=== PATIENT | female | born 1965 | race Caucasian/White ===

== ENCOUNTER → 2016-07-22 | Outpatient (REF) | payer OTHER ==
[2016-07-22 19:57] LABS: BASO % 0.9 % (0.0-1.0); EOS # 0.2 K/mm3 (0.0-0.50); EOS % 3.7 % (0.0-3.0); LYMPH # 1.4 K/mm3 (1.5-4.5); LYMPH % 27.9 % (24.0-44.0); MEAN CORPUSCULAR HGB CONC 33.2 g/dl (32.0-36.5); MEAN CORPUSCULAR VOLUME 93.3 fl (80.0-96.0); MONO # 0.3 K/mm3 (0.0-0.8); MONO % 6.2 % (0.0-5.0); NEUTROPHILS # 2.8 K/mm3 (1.8-7.7); NEUTROPHILS % 59.5 % (36.0-66.0); RED CELL DISTRIBUTION WIDTH 11.9 % (11.5-14.5); WHITE BLOOD COUNT 4.7 K/mm3 (4.0-10.0)
[2016-07-22 20:04] LABS: ALBUMIN 4.3 GM/DL (3.2-5.2); ALBUMIN/GLOBULIN RATIO 1.23 (1.00-1.93); ALKALINE PHOSPHATASE 71 U/L (45-117); ALT/SGPT 20 U/L (12-78); AMYLASE 57 U/L (25-115); ANION GAP 5 MEQ/L (8-16); AST/SGOT 19 U/L (15-37); BILIRUBIN,TOTAL 0.4 MG/DL (0.2-1.0); BLOOD UREA NITROGEN 18 MG/DL (7-18); CALCIUM LEVEL 9.4 MG/DL (8.5-10.1); CARBON DIOXIDE LEVEL 33 MEQ/L (21-32); CHLORIDE LEVEL 102 MEQ/L (98-107); CREATININE FOR GFR 0.88 MG/DL (0.55-1.02); GLOMERULAR FILTRATION RATE > 60.0 (>51); GLUCOSE, FASTING 89 MG/DL (70-105); POTASSIUM SERUM 3.8 MEQ/L (3.5-5.1); SODIUM LEVEL 140 MEQ/L (136-145); TOTAL PROTEIN 7.8 GM/DL (6.4-8.2)
== END ==
LOC: M LABDRWAD 09:15
PROVIDERS: ATTEND Nurse Practitioner Family
DX: R10.13 Epigastric pain (principal)

== ENCOUNTER → 2016-12-30 | Outpatient (CLI) | payer OTHER ==
--- NOTE | 2016-12-30 12:09 | REPMRS ---
Patient History The patient states she had a clinical breast exam in November 2016. Patient had first child at age 36. Digital Mammo Screening Bilat: December 30, 2016 - Exam #: [id number] Bilateral CC and MLO view(s) were taken. Technologist: Brit Rebolledo, Technologist Prior study comparison: December 30, 2015, bilateral digital mammo screening bilat performed at [facility]. December 19, 2014, bilateral digital mammo screening bilat performed at [facility]. FINDINGS: There are scattered fibroglandular densities. There has been no change in the appearance of the mammogram from the prior studies. There is a mild amount of residual fibroglandular tissue which is fairly symmetric. There is no interval development of dominant mass, architectural distortion, or clustered microcalcification suggestive of malignancy. ASSESSMENT: BI-RADS/ACR category 1 mammogram. Negative. Recommendation Routine screening mammogram in 1 year (for women over age 40). This mammogram was interpreted with the aid of an FDA-approved computer-aided dectection system. Electronically Signed By: Chino Bhatt MD 12/30/16 [id number]
== END ==
LOC: M RAD 09:56
PROVIDERS: ATTEND Nurse Practitioner Women's Health
DX: Z12.31 Encounter for screening mammogram for malignant neoplasm of breast (principal)

== ENCOUNTER → 2017-07-14 | Outpatient (CLI) | payer OTHER ==
[2017-07-14 12:37] LABS: BASO % 1.3 % (0.0-1.0); EOS # 0.1 10^3/uL (0.0-0.50); EOS % 1.9 % (0.0-3.0); HEMATOCRIT 37.7 % (36.0-47.0); HEMOGLOBIN 12.5 g/dl (12.0-16.0); IMMATURE GRANULOCYTE % 0.3 % (0-3.0); LYMPH # 1.1 10^3/uL (1.5-4.5); LYMPH % 35.9 % (24.0-44.0); MEAN CORPUSCULAR HEMOGLOBIN 30.7 pg (27.0-33.0); MEAN CORPUSCULAR HGB CONC 33.2 g/dl (32.0-36.5); MEAN CORPUSCULAR VOLUME 92.6 fl (80.0-96.0); MONO # 0.3 10^3/uL (0.0-0.8); MONO % 9.1 % (0.0-5.0); NEUTROPHILS # 1.6 10^3/uL (1.8-7.7); NEUTROPHILS % 51.5 % (36.0-66.0); PLATELET COUNT, AUTOMATED 243 10^3/uL (150-450); RED BLOOD COUNT 4.07 10^6/uL (4.00-5.40); RED CELL DISTRIBUTION WIDTH 12.1 % (11.5-14.5); WHITE BLOOD COUNT 3.1 10^3/uL (4.0-10.0)
[2017-07-14 12:51] LABS: TOTAL 25(OH) VITAMIN D 38.4 NG/ML (30.0-100.0)
[2017-07-14 14:59] LABS: ALBUMIN 4.2 GM/DL (3.2-5.2); ALKALINE PHOSPHATASE 78 U/L (45-117); ALT/SGPT 21 U/L (12-78); ANION GAP 5 MEQ/L (8-16); AST/SGOT 19 U/L (7-37); BILIRUBIN,TOTAL 0.6 MG/DL (0.2-1.0); BLOOD UREA NITROGEN 14 MG/DL (7-18); CALCIUM LEVEL 8.5 MG/DL (8.5-10.1); CARBON DIOXIDE LEVEL 30 MEQ/L (21-32); CHLORIDE LEVEL 107 MEQ/L (98-107); CHOLESTEROL LEVEL 260 MG/DL (<200); CHOLESTEROL RISK RATIO 1.897 (<5); CREATININE FOR GFR 0.89 MG/DL (0.55-1.30); GLOMERULAR FILTRATION RATE > 60.0 (>51); GLUCOSE, FASTING 85 MG/DL (70-100); HDL CHOLESTEROL 137 MG/DL (>40); NON-HDL-C 123 MG/DL; POTASSIUM SERUM 4.4 MEQ/L (3.5-5.1); SODIUM LEVEL 142 MEQ/L (136-145); TOTAL PROTEIN 7.7 GM/DL (6.4-8.2); TRIGLYCERIDES LEVEL 40 MG/DL (<150)
== END ==
LOC: M ADAMS 10:35
DX: E78.5 Hyperlipidemia, unspecified (principal); M19.90 Unspecified osteoarthritis, unspecified site; R42 Dizziness and giddiness; E55.9 Vitamin D deficiency, unspecified

== ENCOUNTER → 2018-01-03 | Outpatient (CLI) | payer OTHER | LOC: M RAD 10:50 | DX: Z12.31 Encounter for screening mammogram for malignant neoplasm of breast (principal) | CPT/HCPCS: 77067 ==

== ENCOUNTER → 2018-07-14 | Outpatient (CLI) | payer OTHER ==
[2018-07-14 12:50] LABS: HEMATOCRIT 37.9 % (36.0-47.0); HEMOGLOBIN 12.4 g/dl (12.0-15.5); MEAN CORPUSCULAR HEMOGLOBIN 30.3 pg (27.0-33.0); MEAN CORPUSCULAR HGB CONC 32.7 g/dl (32.0-36.5); MEAN CORPUSCULAR VOLUME 92.7 fl (80.0-96.0); PLATELET COUNT, AUTOMATED 237 10^3/uL (150-450); RED BLOOD COUNT 4.09 10^6/uL (4.00-5.40); WHITE BLOOD COUNT 3.5 10^3/uL (4.0-10.0)
[2018-07-14 13:27] LABS: ALBUMIN 4.1 GM/DL (3.2-5.2); ALT/SGPT 19 U/L (12-78); BILIRUBIN,TOTAL 0.5 MG/DL (0.2-1.0); BLOOD UREA NITROGEN 15 MG/DL (7-18); CALCIUM LEVEL 8.9 MG/DL (8.5-10.1); CARBON DIOXIDE LEVEL 29 MEQ/L (21-32); CHLORIDE LEVEL 106 MEQ/L (98-107); CHOLESTEROL LEVEL 262 MG/DL (<200); CHOLESTEROL RISK RATIO 1.969 (<5); CREATININE FOR GFR 0.93 MG/DL (0.55-1.30); GLOMERULAR FILTRATION RATE > 60.0 (>51); GLUCOSE, FASTING 86 MG/DL (70-100); HDL CHOLESTEROL 133 MG/DL (>40); LDL CHOLESTEROL 122 MG/DL (<100); MAGNESIUM LEVEL 2.5 MG/DL (1.8-2.4); NON-HDL-C 129 MG/DL; POTASSIUM SERUM 4.9 MEQ/L (3.5-5.1); SODIUM LEVEL 141 MEQ/L (136-145); TOTAL 25(OH) VITAMIN D 40.5 NG/ML (30.0-100.0); TOTAL PROTEIN 7.4 GM/DL (6.4-8.2); TRIGLYCERIDES LEVEL 35 MG/DL (<150)
== END ==
LOC: M LABDRWAD 10:51
PROVIDERS: ATTEND Family Medicine
DX: E78.5 Hyperlipidemia, unspecified (principal); M19.90 Unspecified osteoarthritis, unspecified site; E83.42 Hypomagnesemia

== ENCOUNTER → 2018-07-20 | Outpatient (REF) | payer OTHER | LOC: M LAB REF 19:23 | PROVIDERS: ATTEND Physician Assistant Medical | DX: J02.9 Acute pharyngitis, unspecified (principal) ==

== ENCOUNTER → 2019-01-04 | Outpatient (CLI) | payer OTHER ==
--- NOTE | 2019-01-04 11:23 | REPMRS ---
Patient History The patient states she had a clinical breast exam in November 2018. Patient had first child at age 36. Took hormonal contraceptives for 5 years. Digital Mammo Screening Bilat: January 04, 2019 - Exam #: [id number] Bilateral CC and MLO view(s) were taken. Technologist: Ramila Mcdonald Technologist Prior study comparison: January 03, 2018, bilateral digital mammo screening bilat performed at [facility]. December 30, 2016, bilateral digital mammo screening bilat performed at [facility]. December 30, 2015, bilateral digital mammo screening bilat performed at [facility]. FINDINGS: There are scattered fibroglandular densities. There has been no change in the appearance of the mammogram from the prior studies. There is a mild amount of scattered fibroglandular density which is fairly symmetric. There is no interval development of dominant mass, architectural distortion, or grouped microcalcification suggestive of malignancy. 3-D tomosynthesis shows no additional findings. Assessment: BI-RADS/ACR category 1 mammogram. Negative Mammogram. Recommendation Routine screening mammogram of both breasts in 1 year (for women over age 40). This patient's Lifetime Breast Cancer Risk is estimated at 12.0 %. This mammogram was interpreted with the aid of an FDA-approved computer-aided dectection system. Electronically Signed By: Alex Lewis MD 01/04/19 1123
== END ==
LOC: M RAD 08:10
PROVIDERS: ATTEND Nurse Practitioner Women's Health
DX: Z12.31 Encounter for screening mammogram for malignant neoplasm of breast (principal)

== ENCOUNTER → 2019-11-27 | Outpatient (REF) | payer OTHER ==
[2019-11-27 14:43] LABS: CHOLESTEROL RISK RATIO 2.151 (<5); TOTAL 25(OH) VITAMIN D 56.8 NG/ML (30.0-100.0)
== END ==
LOC: M LABDRWAD 12:21
PROVIDERS: ATTEND Family Medicine
DX: E78.5 Hyperlipidemia, unspecified (principal); E55.9 Vitamin D deficiency, unspecified

== ENCOUNTER → 2020-01-08 | Outpatient (CLI) | payer OTHER ==
--- NOTE | 2020-01-23 16:29 | REPMRS ---
Patient History The patient states she had a clinical breast exam in 11/2019. Patient is postmenopausal and had first child at age 36. Family history of pancreatic cancer at age 58 in sister. Took hormonal contraceptives for 5 years. Digital Woman Screen Mammo: January 08, 2020 - Exam #: [id number] Bilateral CC and MLO view(s) were taken. Technologist: Kimberly Ibanez, Technologist Prior study comparison: January 04, 2019, bilateral digital mammo screening bilat, performed at [facility]. January 03, 2018, bilateral digital mammo screening bilat, performed at [facility]. December 30, 2016, bilateral digital mammo screening bilat, performed at [facility]. FINDINGS: There are scattered fibroglandular densities. The Volpara volumetric breast density category is:B. There has been no change in the appearance of the mammogram from the prior studies. There is a mild amount of scattered fibroglandular density which is fairly symmetric. There is no interval development of dominant mass, architectural distortion, or grouped microcalcification suggestive of malignancy. 3-D tomosynthesis shows no additional findings. Assessment: BI-RADS/ACR category 1 mammogram. Negative Mammogram. Recommendation Routine screening mammogram of both breasts in 1 year (for women over age 40). This patient's Lifetime Breast Cancer Risk is estimated at 12.9 %. This mammogram was interpreted with the aid of an FDA-approved computer-aided dectection system. Electronically Signed By: Alex Lewis MD 01/23/20 [id number]
== END ==
LOC: M WHC 17:04
PROVIDERS: ATTEND Obstetrics & Gynecology
DX: Z12.31 Encounter for screening mammogram for malignant neoplasm of breast (principal); Z78.0 Asymptomatic menopausal state; Z80.0 Family history of malignant neoplasm of digestive organs

== ENCOUNTER → 2020-04-29 | Outpatient (CLI) | payer SELFPAY | LOC: M LABSMTC 19:09 | PROVIDERS: ATTEND Pediatrics | DX: Z11.59 Encounter for screening for other viral diseases (principal) ==

== ENCOUNTER 2020-06-26 17:14 | Emergency (ER) | payer OTHER ==
[~2020-06-26] VITALS: Ht 157.5 cm; Wt 54.5 kg
--- OUTSIDE RECORDS SUMMARY | 2020-06-26 17:52 | CCD ---
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 Operator Name Role Phone Kianna SUÁREZ MD Unavailable Unavailable Kianna SUÁREZ MD Unavailable Unavailable Kianna SUÁREZ MD Unavailable Unavailable Kianna SUÁREZ MD Unavailable Unavailable Kianna SUÁREZ MD Unavailable Unavailable SUÁREZKianna MD Unavailable Unavailable SUÁREZKianna MD Unavailable Unavailable SUÁREZKianna MD Unavailable Unavailable SUÁREZKianna MD Unavailable Unavailable USÁREZKianna MD Unavailable Unavailable SUÁREZKianna MD Unavailable Unavailable SUÁREZKianna MD Unavailable Unavailable SUÁREZ L DENA SCOTT Unavailable Unavailable SUÁREZKianna MD Unavailable Unavailable SUÁREZKianna MD Unavailable Unavailable SUÁREZKianna MD Unavailable Unavailable Kianna SUÁREZ MD Unavailable Unavailable SUÁREZKianna MD Unavailable Unavailable SUÁREZKianna MD Unavailable Unavailable Kianna SUÁREZ MD Unavailable Unavailable SUÁREZ, L DENA SCOTT Unavailable Unavailable SUÁREZ, L DENA SCOTT Unavailable Unavailable SUÁREZ, L DENA SCOTT Unavailable Unavailable SUÁREZ, Kianna FERNANDES MD Unavailable Unavailable SUÁREZ, L DENA SCOTT Unavailable Unavailable SUÁREZKianna MD Unavailable Unavailable SUÁREZ, L DENA MD Unavailable Unavailable Kianna SUÁREZ MD Unavailable Unavailable Kianna SUÁREZ MD Unavailable Unavailable Kianna SUÁREZ MD Unavailable Unavailable Kianna SUÁREZ MD Unavailable Unavailable Kianna SUÁREZ MD Unavailable Unavailable Kianna SUÁREZ MD Unavailable Unavailable Kianna SUÁREZ MD Unavailable Unavailable Kianna SUÁREZ MD Unavailable Unavailable Kianna SUÁREZ MD Unavailable Unavailable Kianna SUÁREZ MD Unavailable Unavailable Kianna SUÁREZ MD Unavailable Unavailable Kianna SUÁREZ MD Unavailable Unavailable Kianna SUÁREZ MD Unavailable Unavailable Kianna SUÁREZ MD Unavailable Unavailable Kianna SUÁREZ MD Unavailable Unavailable Kianna SUÁREZ MD Unavailable Unavailable Sasha, F Yash MD Unavailable Unavailable Sasha, F Yash MD Unavailable Unavailable Sasha, F Yash MD Unavailable Unavailable Sasha, F Yash MD Unavailable Unavailable Sasha, F Yash MD Unavailable Unavailable Sasha, F Yash MD Unavailable Unavailable Sasha, F Yash MD Unavailable Unavailable Sasha, F Yash MD Unavailable Unavailable Sasha, F Yash MD Unavailable Unavailable Sasha, F Yash MD Unavailable Unavailable Sasha, F Yash MD Unavailable Unavailable Sasha, F Yash MD Unavailable Unavailable Sasha, F Yash MD Unavailable Unavailable Sasha, F Yash MD Unavailable Unavailable Sasha, F Yash MD Unavailable Unavailable Sasha, F Yash MD Unavailable Unavailable Sasha, F Yash MD Unavailable Unavailable Sasha, F Yash MD Unavailable Unavailable Sasha, F Yash MD Unavailable Unavailable Sasha, F Yash MD Unavailable Unavailable Sasha, F Yash MD Unavailable Unavailable Sasha, F Yash MD Unavailable Unavailable Sasha, F Yash MD Unavailable Unavailable Sasha, F Yash MD Unavailable Unavailable Sasha, F Yash MD Unavailable Unavailable Sasha, F Yash MD Unavailable Unavailable Sasha, F Yash MD Unavailable Unavailable Sasha, F Yash MD Unavailable Unavailable Sasha, F Yash MD Unavailable Unavailable Sasha, F Yash MD Unavailable Unavailable Sasha, F Yash MD Unavailable Unavailable Sasha, F Yash MD Unavailable Unavailable Sasha, F Yash MD Unavailable Unavailable Sasha, F Yash MD Unavailable Unavailable Sasha, F Yash MD Unavailable Unavailable Sasha, F Yash MD Unavailable Unavailable Sasha, F Yash MD Unavailable Unavailable Sasha, F Yash MD Unavailable Unavailable Sasha, F Yash MD Unavailable Unavailable Sasha, F Yash MD Unavailable Unavailable Sasha, F Yash MD Unavailable Unavailable Sasha, F Yash MD Unavailable Unavailable Sasha, F Yash MD Unavailable Unavailable Sasha, F Yash MD Unavailable Unavailable Sasha, F Yash MD Unavailable Unavailable Sasha, F Yash MD Unavailable Unavailable Sasha, F Yash MD Unavailable Unavailable Sasha, F Yash MD Unavailable Unavailable Sasha, F Yash MD Unavailable Unavailable Sasha, F Yash MD Unavailable Unavailable Sasha, F Yash MD Unavailable Unavailable Sasha, F Yash MD Unavailable Unavailable Sasha, F Yash MD Unavailable Unavailable Sasha, F Yash MD Unavailable Unavailable Sasha, F Ysah MD Unavailable Unavailable Sasha, F Yash MD Unavailable Unavailable Sasha, F Yash MD Unavailable Unavailable Sasha, F Yash MD Unavailable Unavailable Sasha, F Yash MD Unavailable Unavailable Sasha, F Yash MD Unavailable Unavailable Sasha, F Yash MD Unavailable Unavailable Sasha, F Yash MD Unavailable Unavailable Sasha, F Yash MD Unavailable Unavailable Sasha, F Yash MD Unavailable Unavailable Sasha, F Yash MD Unavailable Unavailable Sasha, F Yash MD Unavailable Unavailable Sasha, F Yash MD Unavailable Unavailable Sasha, F Yash MD Unavailable Unavailable Sasha, F Yash Unavailable Unavailable Sasha, F Yash Unavailable Unavailable Kianna SUÁREZ MD Unavailable Unavailable Kianna SUÁREZ MD Unavailable Unavailable Kianna SUÁREZ MD Unavailable Unavailable Kianna SUÁREZ MD Unavailable Unavailable Kianna SUÁREZ MD Unavailable Unavailable Kianna SUÁREZ MD Unavailable Unavailable Kianna SUÁREZ MD Unavailable Unavailable Kianna SUÁREZ MD Unavailable Unavailable Kianna SUÁREZ MD Unavailable Unavailable Kianna SUÁREZ MD Unavailable Unavailable Kianna SUÁREZ MD Unavailable Unavailable Kianna SUÁREZ MD Unavailable Unavailable Kianna SUÁREZ MD Unavailable Unavailable Kianna SUÁREZ MD Unavailable Unavailable Kianna SUÁREZ MD Unavailable Unavailable Kianna SUÁREZ MD Unavailable Unavailable SUÁREZ, L DENA SCOTT Unavailable Unavailable SUÁREZ, L DENA SCOTT Unavailable Unavailable SUÁREZ, L DENA SCOTT Unavailable Unavailable SUÁREZ, L DENA SCOTT Unavailable Unavailable SUÁREZ, L DENA SCOTT Unavailable Unavailable SUÁREZ, L DENA SCOTT Unavailable Unavailable SUÁREZ, L DENA Unavailable Unavailable SUÁREZ, L DENA Unavailable Unavailable SUÁREZ, L DENA SCOTT Unavailable Unavailable USÁREZ, L DENA SCOTT Unavailable Unavailable SUÁREZ, L DENA SCOTT Unavailable Unavailable SUÁREZ, L DENA Unavailable Unavailable SUÁREZ, L DENA MD Unavailable Unavailable SUÁREZ, L DENA MD Unavailable Unavailable SUÁREZ, L DENA MD Unavailable Unavailable SUÁREZ, L DENA MD Unavailable Unavailable SUÁREZ, L DENA MD Unavailable Unavailable SUÁREZ, L DENA SCOTT Unavailable Unavailable SUÁREZ, L DENA MD Unavailable Unavailable SUÁREZ, L DENA MD Unavailable Unavailable SUÁREZ, L DENA MD Unavailable Unavailable SUÁREZ, L DENA MD Unavailable Unavailable SUÁREZ, L DENA MD Unavailable Unavailable SUÁREZ, L DENA MD Unavailable Unavailable SUÁREZ, L DENA MD Unavailable Unavailable SUÁREZ, L DENA MD Unavailable Unavailable SUÁREZ, L DENA MD Unavailable Unavailable RING, K CHARLY PA Unavailable Unavailable RING, K CHARLY PA Unavailable Unavailable RING, K CHARLY PA Unavailable Unavailable RING, K CHARLY PA Unavailable Unavailable RING, K CHARLY PA Unavailable Unavailable RING, K CHARLY PA Unavailable Unavailable RING, K CHARLY PA Unavailable Unavailable RING, K CHARLY PA Unavailable Unavailable RING, K CHARLY PA Unavailable Unavailable RING, K CHARLY PA Unavailable Unavailable RING, K CHARLY PA Unavailable Unavailable RING, K CHARLY PA Unavailable Unavailable RING, K CHARLY PA Unavailable Unavailable RING, K CHARLY PA Unavailable Unavailable RING, K CHARLY PA Unavailable Unavailable RING, K CHARLY PA Unavailable Unavailable RING, K CHARLY PA Unavailable Unavailable RING, K CHARLY PA Unavailable Unavailable RING, K CHARLY PA Unavailable Unavailable RING, K CHARLY PA Unavailable Unavailable RING, K CHARLY PA Unavailable Unavailable LETTY Ocampo, Barbara Unavailable Kianna Osborne MD Unavailable Unavailable Osborne, Kianna Slaughter MD Unavailable Unavailable Osborne, Kianna Slaughter MD Unavailable Unavailable Osborne, Kianna Slaughter MD Unavailable Unavailable Osborne, Kianna Slaughter MD Unavailable Unavailable Osborne, Kianna Slaughter MD Unavailable Unavailable Osborne, L Sukhjinder MD Unavailable Unavailable Osborne, L Sukhjinder MD Unavailable Unavailable Osborne, L Sukhjinder MD Unavailable Unavailable Osborne, L Sukhjinder MD Unavailable Unavailable Osborne, L Sukhjinder MD Unavailable Unavailable Osborne, L Sukhjinder MD Unavailable Unavailable Osborne, L Sukhjinder MD Unavailable Unavailable Osborne, L Sukhjinder MD Unavailable Unavailable Osborne, L Sukhjinder MD Unavailable Unavailable Osborne, L Sukhjinder MD Unavailable Unavailable Osborne, L Sukhjinder MD Unavailable Unavailable Osborne, L Sukhjinder MD Unavailable Unavailable Osborne, L Sukhjinder MD Unavailable Unavailable Osborne, L Sukhjinder MD Unavailable Unavailable Osborne, L Sukhjinder MD Unavailable Unavailable Osborne, L Sukhjinder MD Unavailable Unavailable Osborne, L Sukhjinder MD Unavailable Unavailable Osborne, L Sukhjinedr MD Unavailable Unavailable Osborne, L Sukhjinder MD Unavailable Unavailable Osborne, L Sukhjinder MD Unavailable Unavailable Osborne, L Sukhjinder MD Unavailable Unavailable Osborne, L Sukhjinder MD Unavailable Unavailable Osborne, L Sukhjinder MD Unavailable Unavailable Osborne, L Sukhjinder MD Unavailable Unavailable Osborne, L Sukhjinder MD Unavailable Unavailable Osborne, L Sukhjinder MD Unavailable Unavailable Osborne, L Sukhjinder MD Unavailable Unavailable Osborne, L Sukhjinder MD Unavailable Unavailable Osborne, L Sukhjinder MD Unavailable Unavailable Osborne, L Sukhjinder MD Unavailable Unavailable Osborne, L Sukhjinder MD Unavailable Unavailable Osborne, L Sukhjinder MD Unavailable Unavailable Osborne, L Sukhjinder MD Unavailable Unavailable Osborne, L Sukhjinder MD Unavailable Unavailable Osborne, L Sukhjinder MD Unavailable Unavailable Osborne, L Sukhjinder MD Unavailable Unavailable Osborne, L Sukhjinder MD Unavailable Unavailable Osborne, L Sukhjinder MD Unavailable Unavailable Osborne, L Sukhjinder MD Unavailable Unavailable Osborne, L Sukhjinder MD Unavailable Unavailable Osborne, L Sukhjinder MD Unavailable Unavailable Re-disclosure Warning The records that you are about to access may contain information from federally-assisted alcohol or drug abuse programs. If such information is present, then the following federally mandated warning applies: This information has been disclosed to you from records protected by federal confidentiality rules (42 CFR part 2). The federal rules prohibit you from making any further disclosure of this information unless further disclosure is expressly permitted by the written consent of the person to whom it pertains or as otherwise permitted by 42 CFR part 2. A general authorization for the release of medical or other information is NOT sufficient for this purpose. The Federal rules restrict any use of the information to criminally investigate or prosecute any alcohol or drug abuse patient.The records that you are about to access may contain highly sensitive health information, the redisclosure of which is protected by Article 27-F of the [place] State Public Health law. If you continue you may have access to information: Regarding HIV / AIDS; Provided by facilities licensed or operated by the [facility] Office of Mental Health; or Provided by the [facility] Office for People With Developmental Disabilities. If such information is present, then the following [facility] mandated warning applies: This information has been disclosed to you from confidential records which are protected by state law. State law prohibits you from making any further disclosure of this information without the specific written consent of the person to whom it pertains, or as otherwise permitted by law. Any unauthorized further disclosure in violation of state law may result in a fine or assisted sentence or both. A general authorization for the release of medical or other information is NOT sufficient authorization for further disc losure. Advance Directives Directive Description Regulatory Compliance Specialist Web Content Specialist Status Observation Descr iption Data Source(s) Ebola Screening Performed completed Ebol a Screening Performed [facility] ([facility]) Note: Within the last month, have you tr aveled outside of the [place]? -NO packet given Pt Bill of Rights, Priv Prac, Ad Dir completed packet given Pt Bill of Rights, Priv Prac, Ad Dir [facility] ([facility]) Note: Pt declined AD packet Allergies and Adverse Reactions Type Description Substance Reaction Status Data Source(s ) Allergy to substance No Known Allergies No known allergies (situation ) [facility] Family History Family Member Name Family Member Gender Family Member Status Date o f Status Description Data Source(s) Unknown Unknown Problem MEDENT ([facility]) Unknown Male Problem 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) Encounters Encounter Providers Location Date Indications Data Source(s ) Outpatient Attender: CHARLY Tran Primary 12/27/2019 10:15:00 AM EDT MEDENT ([facility] Outpatient Attender: 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 Bassett 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 10:30:00 AM EDT 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) Outpatient<td ID="encounterTypeDescripti onID0">[facility]</td><td>Yash Baez MD</td><td>[facility]</td><td>11/23/2019</td><td><content ID="encounterDiagnosisID0-0">Allergic Rhinitis</content>, <content ID="encounterDiagnosisID0-1">Osteoarthritis</content>, <content ID="encounterDiagnosisID0-2">Routine History and Physical</content></td> Attender: Yash Baez MD [facility] 11/23/2019 01:05:00 PM EDT - 11/23/2019 01:59:32 PM EDT Routine History and PhysicalOsteoarthrit isAllergic Rhinitis ZAKIA ([facility]) Routine History and Physical Osteoarthritis Allergic Rhinitis Outpatient Attender: Sukhjinder Osborne MD Physical Therapy 11/16/2019 0 1:30:00 PM EDT MEDENT ([facility]) Outpatient Referrer: DENA SUÁREZ MD 10/31/2019 03:31:00 PM EDT [facility] Radiology Imaging Outpatient Referrer: DENA SUÁREZ MD 10/25/2019 11:19:00 AM EDT [facility] Imaging Outpatient Attender: DENA SUÁREZ MD [facility] accounting analyst 07/2019 10:00:00 AM EDT 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) Unknown<td ID="encounterTypeDescriptionI D1">Chart Prep</td><td>Barbara Ocampo RN</td><td></td><td>07/11/2019</td><td></td> Attender: Barbara Ocampo RN 07/11/2019 02:39:00 PM EST - 07/11/2019 11:59:00 PM EST ZAKIA ([facility]) Immunizations Vaccine Date Status Description Data Source(s) Tdap 11/23/2019 01:55:00 PM EDT completed Boostrix 1 0 Left Arm Complete (Administered) [facility] ([facility]) Medications Medication Brand Name Start Date Product Form Dose Route Admi nistrative Instructions Pharmacy Instructions Status Indications Reaction Description Data Source(s) 875-125 mg 04/14/2020 12:00:00 AM EST tablet 20 TAKE ONE TABLET BY MOUTH TWICE A DAY FOR 10 DAYS TAKE ONE TABLET BY MOUTH TWICE A DAY FOR 10 DAYS SOLD: 04/14/2020 [employer] chlorhexidine gluconate 1.2 MG/ML Mouthwash Chlorhexidine Gl uconate 12/27/2019 12:00:00 AM EDT active M EDENT ([facility]) 0.12 % 12/27/2019 12:00:00 AM EDT mouthwash 473 SWISH AND SPIT 15 MLS BY MOUTH FOR 1 MINUTE EVERY 6 HOURS UNTIL RESOLUTION SWISH AND SPIT 15 MLS BY MOUTH FOR 1 MINUTE EVERY 6 HOURS UNTIL RESOLUTION SOLD: 12/27/2019 [facility] 0.625 mg/gram 12/20/2019 12:00:00 AM EDT cream 60 APPLY SMALL AMOUNT TO AFFECTED AREA EVERY NIGHT AT BEDTIME NEEDED APPLY SMALL AMOUNT TO AFFECTED AREA EVERY NIGHT AT BEDTIME NEEDED SOLD: 12/27/2019 [facility] Estrogens, Conjugated (RETIREMENT) 0.625 MG/ML Vaginal Cream [Christie rin] Premarin 10/25/2019 12:00:00 AM EDT active 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) Insurance Providers Payer name Policy type / Coverage type Policy ID Covered green party ID Covered green party's relationship to king Policy King Plan Information SELF PAY ONLY [id number] SP [id number] [facility] O [id number] S [id number] [facility] [id number] SP [id number] [facility] Health [facility] Other [id number] Self [id number] [facility] [id number] SP [id number] [facility] Health Maintenance Organization (HMO) [id number] Family Dependent [id number] [facility] Health [facility] Other [id number] Self [id number] MVP Commercial [id number] Self [id number] [facility] Commercial [id number] Self [id number] [facility] Health [facility] Other [id number] Self [id number] [facility] Health Maintenance Organization (HMO) [id number] Family Dependent [id number] [facility] Health [facility] Other [id number] Self [id number] [facility] Health [facility] Other [id number] Self [id number] MV HEALTH CARE [id number] SP [id number] MVP SELECT [id number] SP [id number] [id number] SP [id number] MVP Commercial Self MVP SELECT [id number] SP [id number] [id number] [id number] Surgeries/Procedures Procedure Description Date Indications Data Source(s) Para 1 Para 1 11/23/2019 12:00:00 AM EDT G [facility]) 2 2 11/23/2019 12:00:00 AM EDT G REENWAY ([facility]) Aborta 1 Aborta 1 11/23/2019 12:00:00 AM EDT G REENWAY ([facility]) Tdap, Tetanus, Diphtheria Toxoids and Acellular Pertus sis Va Tdap, Tetanus, Diphtheria Toxoids and Acellular Pertussis Va 11/23/2019 12:00:00 AM EDT ZAKIA ([facility]) RADEX SPINE LUMBOSACRAL MINIMUM 4 VIEWS 11/16/2019 12: 00:00 AM EDT MEDENT ([facility]) RADIOLOGIC EXAMINATION PELVIS 1/2 VIEWS 11/16/2019 12: 00:00 AM EDT MEDENT ([facility] ) Results ID Date Data Source [id number] 04/30/2020 12:00:00 AM EST [facility] Name Value Range Interpretation Code Description Data Jessica rce(s) Supporting Document(s) 2019-nCoV RNA XXX MARVIN+probe-Imp [facility] This lab was ordered by [facility] and reported by [employer] 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 Cervical, Endocervical, ThinPrep Pap (Rental Agent) CYTOLOGY HX-------- Other Information:Previous Normal Pap: 12/12/18 Post-menopausal FINAL DIAGNOSIS---- INTERPRETATION: Negative for Intraepithelial Lesion or Malignancy. SPECIMEN ADEQUACY:Satisfactory for evaluation. Endocervical/transformation zone component present. ADDITIONAL FINDINGS:Atrophic pattern. 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 She meetsthe criteria for genetic testing established by National ComprehensiveCan[employer] Network and [place] [employer] guidelines. She should pursue arisk assessment with a hereditary cancer specialist which may includetesting based on these criteria. The benefits and limitations of genetictesting would be discussed, including potential changes to medicalmanagement based on the results. Your patient declined myRisk genetictesting at this time. The uterus measures 6.9 x 2.4 x 3.8 cm. The parenchymal echo pattern iswithin normal limits. The endometrial echocomplex measures 7 mm inthickness.Neither ovary could be seen transvesically or transvaginally.The urinary bladder measures 12 x 8 x 11 cm .IMPRESSION:Limited exam since neither ovary could be visualized. Pre and postGadolinium enhanced pelvic MRI should be considered.Accredited by the [employer] in GynecologicalUltrasound.REBEKAH Martino/Codey you for referring DOM CROOK to our office. Electronically Signed - FRED RAPHAEL DO 11/01/19 17:12 Name Value Range Interpretation Code Description Data Jessica rce(s) Supporting Document(s) ID Date Data Source [id number] 10/31/2019 12:00:00 AM EDT [facility] Dena Suárez MD Patient Name: JARON CROOK [facility] Date of : 1965[place] [address] Date of Exam: 10/31/2019#: Fax: [phone] EXAM: US PELVIC COMPLETECLINICAL INFORMATION: Pelvic pain.Transvesical and transvaginal imaging was obtained.Secondary to the patient's complaints of pelvic pain, bilateral ovarianDopplers were obtained.Your patient's personal and/or family history of cancer submitted at thetime of imaging is suggestive of a hereditary cancer syndrome. She meetsthe criteria for genetic testing established by [employer]Can[employer] Network and [employer] guidelines. She should pursue arisk assessment with a hereditary cancer specialist which may includetesting based on these criteria. The benefits and limitations of genetictesting would be discussed, including potential changes to medicalmanagement based on the results. Your patient declined myRisk genetictesting at this time. The uterus measures 6.9 x 2.4 x 3.8 cm. The parenchymal echo pattern iswithin normal limits. The endometrial echocomplex measures 7 mm inthickness.Neither ovary could be seen transvesically or transvaginally.The urinary bladder measures 12 x 8 x 11 cm .IMPRESSION:Limited exam since neither ovary could be visualized. Pre and postGadolinium enhanced pelvic MRI should be considered.Accredited by the [employer] in GynecologicalUltrasound.REBEKAH Martino/Codey you for referring DOM CROOK to our office. 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) Smoking 11/23/2019 12:00:00 AM EDT Never smoked tobacco (findi ng) completed Never smoked tobacco (finding) ZAKIA ([facility]) Smoking 10/25/2019 12:00:00 AM EDT Patient has never smoked co mpleted Patient has never smoked 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) Vital Signs ID Date Data Source UNK Name Value Range Interpretation Code Description Data Source(s) Body mass index (BMI) [Ratio] 21.6 kg/m2 21.6 k g/m2 MEDENT ([facility]) Body height 62 [in_i] 62 [in_i] MEDENT ([facility]) 5'2" Body weight 118.00 [lb_av] 118.00 [lb_av] MEDEN T ([facility]) Body temperature 98.3 [degF] 98.3 [degF] MEDENT ([facility] Oxygen saturation in Arterial blood by Pulse oximetry 98 % 98 % MEDENT ([facility]) Respiratory rate 15 /min 15 /min MEDENT ( [facility]) Heart rate 80 /min 80 /min MEDENT ([facility]) Diastolic blood pressure 75 mm[Hg] 75 mm[Hg] MEDENT ([facility]) Systolic blood pressure 114 mm[Hg] 114 mm[Hg] M EDENT ([facility]) Body surface area 1.54 m2 1.54 m2 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) Body mass index (BMI) [Ratio] 21.4 kg/m2 21.4 k g/m2 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) Body weight 119.00 [lb_av] 119.00 [lb_av] MEDEN T ([employer]) Body height 62.5 [in_i] 62.5 [in_i] MEDENT ([facility] [employer]ACHINE OPER[employer]) 5'2.50" Diastolic blood pressure 60 mm[Hg] 60 mm[Hg] 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) Systolic blood pressure 110 mm[Hg] 110 mm[Hg] M EDENT ([employer]INE [employer]) Inhaled oxygen concentration 21 % 21 % ZAKIA ([facility]) Inhaled oxygen flow rate 0 L/min 0 L/min ZAKIA ([facility]) Oxygen saturation in Arterial blood by Pulse oximetry 98 % 98 % ZAKIA ([facility]) PhenX - pain, abdominal - type and intensity protocol 0 0 ZAKIA ([facility]) Body surface area Derived from formula 1.54 m2 1.54 m2 ZAKIA ([facility]) Body mass index (BMI) [Ratio] 21.2 kg/m2 21.2 k g/m2 ZAKIA ([facility]) Body weight 118 [lb_av] 118 [lb_av] [facility] Body height 62.5 [in_i] 62.5 [in_i] ZAKIA ([facility]) Body temperature 99.8 [degF] 99.8 [degF] [facility] ([facility]) Respiratory rate 16 /min 16 /min ZAKIA ([facility]) Heart rate 78 /min 78 /min ZAKIA ([facility]) Diastolic blood pressure 76 mm[Hg] 76 mm[Hg] ZAKIA ([facility]) Systolic blood pressure 116 mm[Hg] 116 mm[Hg] G REENWAY ([facility]) Body mass index (BMI) [Ratio] 21.6 kg/m2 21.6 k g/m2 MEDENT ([facility] ) Body weight 118.00 [lb_av] 118.00 [lb_av] MEDEN T ([facility] ) Body height 62 [in_i] 62 [in_i] MEDENT ([facility]) 5'2" Body temperature 97.6 [degF] 97.6 [degF] [facility]
[2020-06-26] MEDS ORDERED: MECLIZINE 25 MG TABLET PO ONE (18:15)
--- NOTE | 2020-06-26 18:19 | REP ---
INDICATION: Syncope/near-syncope COMPARISON: None. TECHNIQUE: Portable AP view of the chest FINDINGS: The mediastinum and cardiac silhouette are within normal limits for portable technique. The lung humphreys are clear without acute consolidation, effusion, or pneumothorax. Skeletal structures are intact. IMPRESSION: No acute cardiopulmonary process appreciated. <Electronically signed by Pedrito Martinez > 06/26/20 [id number]
[2020-06-26 18:20] LABS: BASO % 0.8 % (0.0-1.0); EOS # 0.1 10^3/uL (0.0-0.5); HEMATOCRIT 37.6 % (36.0-47.0); HEMOGLOBIN 12.3 g/dl (12.0-15.5); LYMPH # 1.2 10^3/uL (1.5-5.0); LYMPH % 23.7 % (24.0-44.0); MEAN CORPUSCULAR HEMOGLOBIN 30.4 pg (27.0-33.0); MEAN CORPUSCULAR HGB CONC 32.7 g/dl (32.0-36.5); MEAN CORPUSCULAR VOLUME 93.1 fl (80.0-96.0); MONO # 0.4 10^3/uL (0.0-0.8); MONO % 8.5 % (0.0-5.0); NEUTROPHILS # 3.3 10^3/uL (1.5-8.5); NEUTROPHILS % 65.8 % (36.0-66.0); PLATELET COUNT, AUTOMATED 229 10^3/uL (150-450); RED BLOOD COUNT 4.04 10^6/uL (4.00-5.40)
[2020-06-26 18:29] LABS: INR 0.96
[2020-06-26 18:51] LABS: BLOOD UREA NITROGEN 20 MG/DL (7-18); CALCIUM LEVEL 9.6 MG/DL (8.5-10.1); CARBON DIOXIDE LEVEL 29 MEQ/L (21-32); CHLORIDE LEVEL 104 MEQ/L (98-107); CK-MB VALUE MASS < 1.0 NG/ML (<3.6); CPK CREATINE PHOSPHOKINASE 69 U/L (26-192); CREATININE FOR GFR 0.84 MG/DL (0.55-1.30); GLOMERULAR FILTRATION RATE > 60.0 (>51); GLUCOSE, FASTING 99 MG/DL (70-100); MAGNESIUM LEVEL 2.5 MG/DL (1.8-2.4); MB/CK RELATIVE INDEX 1.45 (< OR =4); POTASSIUM SERUM 3.9 MEQ/L (3.5-5.1); SODIUM LEVEL 140 MEQ/L (136-145); TROPONIN I < 0.02 NG/ML (< 0.10)
--- NOTE | 2020-06-26 19:09 | REPVR ---
PROCEDURE INFORMATION: Exam: CT Head Without Contrast Exam date and time: 06/26/2020 6:45 PM Age: 55 years old Clinical indication: Syncope and collapse TECHNIQUE: Imaging protocol: Computed tomography of the head without contrast. Radiation optimization: All CT scans at this facility use at least one of these dose optimization techniques: automated exposure control; mA and/or kV adjustment per patient size (includes targeted exams where dose is matched to clinical indication); or iterative reconstruction. COMPARISON: No relevant prior studies available. FINDINGS: Brain: Normal. No hemorrhage. Unremarkable white matter. No mass effect. Cerebral ventricles: No ventriculomegaly. Bones/joints: Unremarkable. No acute fracture. Paranasal sinuses: Visualized sinuses are unremarkable. No fluid levels. Mastoid air cells: Visualized mastoid air cells are well aerated. Soft tissues: Unremarkable. IMPRESSION: No acute intracranial abnormality. Electronically signed by: Matthieu Lau On 06/26/2020 19:09:05 PM
[2020-06-26] MEDS ORDERED: MECL1TAB31 PO (19:58)
[2020-06-26 20:13] VITALS: BP 119/67
--- NOTE | 2020-06-27 07:41 | ECGEPIP ---
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
== END 2020-06-26 20:17 | disposition home or self-care (01) ==
LOC: EDBD 17:14 → M ED 17:14
DX: R42 Dizziness and giddiness (principal)

== ENCOUNTER → 2021-11-20 | Outpatient (REF) | payer OTHER ==
[~2021-11-20] MED LIST: MECL1TAB31 PO
== END ==
LOC: M LAB REF 16:06
PROVIDERS: ATTEND Internal Medicine
DX: R11.0 Nausea (principal)

== ENCOUNTER → 2022-10-05 | Outpatient (REF) | payer OTHER | LOC: M SFHCWAGY 18:11 | PROVIDERS: ATTEND Nurse Practitioner Family | DX: Z12.4 Encounter for screening for malignant neoplasm of cervix (principal) | CPT/HCPCS: 87624; G0123 ==

== ENCOUNTER → 2023-02-23 | Outpatient (CLI) | payer OTHER ==
[~2023-02-23] MED LIST changes: +MECL-209 PO; -MECL1TAB31 PO
== END ==
LOC: M RAD 10:20
PROVIDERS: ATTEND Internal Medicine
DX: R09.89 Other specified symptoms and signs involving the circulatory and respiratory systems (principal); I65.22 Occlusion and stenosis of left carotid artery

== ENCOUNTER 2023-06-07 08:43 | Day surgery (SDC) | payer OTHER ==
[~2023-06-07] VITALS: Ht 157.5 cm; Wt 54.8 kg
[~2023-06-07 08:43] MED LIST changes: +ASPI81CH33 PO; +NS 1,000 ML IV ONE; +VITMTA PO
[2023-06-07] MEDS ORDERED: propofoL 200 MG/20 ML VIAL As Ordered ONE (09:46)
[2023-06-07 10:02] VITALS: TEMP 96.8
[2023-06-07 10:22] VITALS: BP 101/55; O2SAT 100
== END 2023-06-07 10:23 | disposition home or self-care (01) ==
LOC: M OPP 08:43
PROVIDERS: ATTEND Internal Medicine Gastroenterology
DX: Z12.11 Encounter for screening for malignant neoplasm of colon (principal); Z79.82 Long term (current) use of aspirin

== ENCOUNTER 2023-08-09 07:18 | Emergency (ER) | payer OTHER ==
[~2023-08-09] VITALS: Ht 157.5 cm; Wt 54.3 kg
[~2023-08-09 07:18] MED LIST changes: -HOLTER MONITOR XX; -ROSU5TAB5
[2023-08-09] MEDS ORDERED: ROSU5TAB5 (07:30)
[2023-08-09 08:02] LABS: BASO % 0.9 % (0.0-1.0); EOS # 0.1 10^3/uL (0.0-0.5); EOS % 1.5 % (0.0-3.0); HEMATOCRIT 38.8 % (36.0-47.0); HEMOGLOBIN 12.9 g/dl (12.0-15.5); LYMPH # 1.1 10^3/uL (1.5-5.0); LYMPH % 32.3 % (24.0-44.0); MEAN CORPUSCULAR HEMOGLOBIN 31.1 pg (27.0-33.0); MEAN CORPUSCULAR HGB CONC 33.2 g/dl (32.0-36.5); MEAN CORPUSCULAR VOLUME 93.5 fl (80.0-96.0); MONO # 0.3 10^3/uL (0.0-0.8); MONO % 8.4 % (2.0-8.0); NEUTROPHILS % 56.9 % (36.0-66.0); PLATELET COUNT, AUTOMATED 216 10^3/uL (150-450); RED BLOOD COUNT 4.15 10^6/uL (4.00-5.40); WHITE BLOOD COUNT 3.4 10^3/uL (4.0-10.0)
[2023-08-09 08:24] LABS: CK-MB VALUE MASS < 1.0 NG/ML (<3.6)
[2023-08-09 08:26] LABS: BLOOD UREA NITROGEN 17 MG/DL (9-23); CALCIUM LEVEL 9.3 MG/DL (8.3-10.6); CARBON DIOXIDE LEVEL 29 MMOL/L (20-31); CHLORIDE LEVEL 105 MMOL/L (98-107); CPK CREATINE PHOSPHOKINASE 78 U/L (34-145); CREATININE FOR GFR 0.83 MG/DL (0.55-1.30); GLOMERULAR FILTRATION RATE > 60.0 (>45); GLUCOSE, FASTING 125 MG/DL (74-106); MAGNESIUM LEVEL 2.3 MG/DL (1.8-2.4); MB/CK RELATIVE INDEX 1.28 (< OR =4); POTASSIUM SERUM 3.4 MMOL/L (3.5-5.1); SODIUM LEVEL 140 MMOL/L (136-145)
[2023-08-09 08:28] LABS: THYROID STIMULATING HORMONE 2.846 uIU/ML (0.55-4.78)
[2023-08-09] MEDS ORDERED: MED REC IN PROGRESS XX SCH (09:00)
[2023-08-09 09:27] LABS: CK-MB VALUE MASS < 1.0 NG/ML (<3.6)
[2023-08-09 09:33] LABS: CPK CREATINE PHOSPHOKINASE 78 U/L (34-145); MB/CK RELATIVE INDEX 1.28 (< OR =4)
[2023-08-09] MEDS ORDERED: HOLTER MONITOR XX (09:54)
[2023-08-09 10:22] VITALS: BP 132/61; TEMP 98.1; O2SAT 100
== END 2023-08-09 10:24 | disposition home or self-care (01) ==
LOC: M ED 07:18
DX: R07.9 Chest pain, unspecified (principal); R00.2 Palpitations; I45.10 Unspecified right bundle-branch block; E78.5 Hyperlipidemia, unspecified; F10.10 Alcohol abuse, uncomplicated; Z79.82 Long term (current) use of aspirin; Z79.899 Other long term (current) drug therapy

== ENCOUNTER → 2023-08-09 | Outpatient (CLI) | payer OTHER ==
[~2023-08-09] MED LIST changes: +HOLTER MONITOR XX; -NS 1,000 ML IV ONE; +ROSU5TAB5
== END ==
LOC: M EKG 10:38
PROVIDERS: ATTEND Emergency Medicine
DX: R00.2 Palpitations (principal)